=== PATIENT | female | born 1955 | race Caucasian/White ===

== ENCOUNTER 2016-12-19 11:19 | Outpatient (CLI) | payer OTHER ==
--- NOTE | 2016-12-20 13:42 | Mammography Report ---
DIGITAL SCREENING MAMMOGRAM: 12/19/2016 CLINICAL INDICATION: A 61-year-old, for screening. COMPARISON: 12/2015, 12/2014, 12/2013, 11/2012, 11/2011, 10/2010, 11/2009. TECHNIQUE: Routine CC and MLO projections were obtained of the breasts. Bilateral laterally exaggera narendra craniocaudal views. FINDINGS: The breasts again demonstrate heterogeneously dense fibroglandular parenchyma bilaterally. Coarse and punctate, typically benign calcifications are present. No suspicious masses, clustered mi crocalcifications, or regions of architectural distortion are identified. IMPRESSION: BENIGN FINDINGS. RECOMMENDATION: ROUTINE ANNUAL SCREENING UNLESS OTHERWISE CLINICALLY INDICATED. BIRADS CATEGORY 2-BENIGN FINDINGS. STANDARD QUALIFYING STATEMENTS 1. This examination was reviewed with the aid of Computer-Aided Detection (CAD). 2. A negative or benign imaging report should not delay biopsy if clinically suspicious findings are present. Consider surgical consultation if warranted. More than 5% of cancers are not identified by i maging. 3. Dense breasts may obscure an underlying neoplasm. JOB #: [id number] EXT JOB #:[id number]
== END 2016-12-19 11:20 | disposition home or self-care (01) ==
LOC: DI 11:19
PROVIDERS: ATTEND Physician Assistant
DX: Z12.31 Encounter for screening mammogram for malignant neoplasm of breast (principal)
CPT/HCPCS: 77067

== ENCOUNTER 2017-12-26 07:48 | Outpatient (CLI) | payer OTHER ==
--- NOTE | 2017-12-29 10:42 | Mammography Report ---
Reason: BILAT SCREENING W BENNY Procedure Date: 12/26/2017 Accession Number: [id number] / [id number] Procedure: [facility] - Screening Mammo w/Benny CPT Code: FULL RESULT: EXAM: Screening Mammo w/Benny DATE: 12/26/2017 8:21 AM CLINICAL HISTORY: 62-year-old female presents for screening mammography. TECHNIQUE: Bilateral CC, laterally exaggerated CC, MLO views were obtained. COMPARISON: 12/19/2016, 12/12/2015, 12/08/2014, 01/04/2014. FINDINGS: The breasts demonstrate heterogeneously dense fibroglandular parenchyma bilaterally. In the left breast, identified on Shane symphysis images initially on the MLO projection is a cluster of microcalcifications with focal asymmetry 3.9 cm from the nipple in the lateral right breast, also identified on the cc view. This requires additional imaging. IMPRESSION: Incomplete examination RECOMMENDATION: Additional evaluation as above. BIRADS CATEGORY 0: Incomplete examination STANDARD QUALIFYING STATEMENTS: 1. This examination was not reviewed with the aid of Computer-Aided Detection (CAD). 2. A negative or benign imaging report should not delay biopsy if clinically suspicious findings are present. Consider surgical consultation if warrented. More than 5% of cancers are not identified by imaging. 3. Dense breasts may obscure an underlying neoplasm. 4. This examination was reviewed with the aid of 3D imaging (tomography).
== END 2017-12-26 07:49 | disposition home or self-care (01) ==
LOC: DI 07:48
PROVIDERS: ATTEND Physician Assistant
DX: Z12.31 Encounter for screening mammogram for malignant neoplasm of breast (principal)
CPT/HCPCS: 77063; 77067

== ENCOUNTER 2018-01-14 14:16 | Outpatient (CLI) | payer OTHER ==
--- NOTE | 2018-01-14 16:02 | Mammography Report ---
Reason: ABN MAMMO - BILAT SPEC VIEWS Procedure Date: 01/14/2018 Accession Number: [id number] / [id number] Procedure: [facility] - Diag Special Views Dig Bilat CPT Code: FULL RESULT: EXAM: Diag Special Views Dig Bilat DATE: 01/14/2018 3:20 PM CLINICAL HISTORY: 62-year-old female recalled from screening mammogram for a cluster of microcalcifications in a region of focal asymmetry. TECHNIQUE: Left spot magnified CC and LM views as well as LM using 2-D and 3-D technique were obtained. COMPARISON: 12/26/2017. FINDINGS: The breasts demonstrate heterogeneously dense fibroglandular parenchyma bilaterally. The focal asymmetry resolves with spot magnification. The cluster of microcalcifications persists with garland symphysis. Comparison to previous years is not possible as the finding is obscured on 2-D views. Stereotactic 3-D guided biopsy is recommended. IMPRESSION: Suspicious abnormality. RECOMMENDATION: Stereotactic biopsy of the left breast microcalcifications seen 3.9 cm deep to the nipple on image 12 in the medial left breast of the LM tomogram. BIRADS CATEGORY 4 STANDARD QUALIFYING STATEMENTS: 1. This examination was not reviewed with the aid of Computer-Aided Detection (CAD). 2. A negative or benign imaging report should not delay biopsy if clinically suspicious findings are present. Consider surgical consultation if warrented. More than 5% of cancers are not identified by imaging. 3. Dense breasts may obscure an underlying neoplasm. 4. This examination was reviewed with the aid of 3D imaging (tomography).
== END 2018-01-14 14:17 | disposition home or self-care (01) ==
LOC: DI 14:16
PROVIDERS: ATTEND Physician Assistant
DX: R92.2 Inconclusive mammogram (principal)
CPT/HCPCS: 77066

== ENCOUNTER 2018-02-05 11:17 | Outpatient (CLI) | payer OTHER ==
--- NOTE | 2018-02-05 16:06 | Mammography Report ---
Reason: ABN MAMMO-LT BREAST CALCS Procedure Date: 02/05/2018 Accession Number: [id number] / [id number] Procedure: [facility] - Stereotactic Core BX LT CPT Code: 68053 FULL RESULT: EXAM: Stereotactic Core BX LT DATE: 02/05/2018 1:04 PM CLINICAL HISTORY: ABN MAMMO-LT BREAST CALCS COMPARISON: None. CLINICAL DATA: Target cluster of microcalcifications in the 10 o'clock axis of the left breast. Informed consent was obtained. The patient was positioned in the mammography machine with biopsy attachment. A targeting tomogram was obtained and the lesion was selected. The breast was approached from the medial aspect. Using standard aseptic technique, 1% buffered lidocaine was injected into the breasts for local anesthesia. A small matilda was made in the skin with a #11 blade. A 9-gauge vacuum-assisted device was advanced into the breasts towards the target and stereoscopic views were made to confirm tomographic targeting and 9 specimens were obtained. Specimen radiography was performed which demonstrated the presence of calcifications in the sample. The biopsy device was subsequently removed from the breast. Hemostasis was achieved. Follow-up 3-D mammography was then performed to verify biopsy targeting. The mammography showed appropriate targeting based on biopsy cavity. Retarding clip could not be placed for technical reasons. The wound was dressed and ice applied. The patient was observed for approximately 15 minutes, then discharged from the diagnostic imaging Department in stable condition following instructions on wound care and obtaining biopsy results. The patient will receive her biopsy results from the referring physician. The tissue was sent for histologic analysis. IMPRESSION: Tomographic and stereotactic left breast biopsy. RADIA
== END 2018-02-05 11:18 | disposition home or self-care (01) ==
LOC: DI 11:17
PROVIDERS: ATTEND Physician Assistant
DX: R92.8 Other abnormal and inconclusive findings on diagnostic imaging of breast (principal)
CPT/HCPCS: 19081

== ENCOUNTER 2019-01-05 14:53 | Outpatient (CLI) | payer OTHER ==
--- NOTE | 2019-01-06 09:01 | Mammography Report ---
Reason: SCREENING MAMMO Procedure Date: 01/05/2019 Accession Number: [id number] / [id number] Procedure: [facility] - Screening Mammo w/Flaquito CPT Code: FULL RESULT: EXAM: Screening Mammo w/Flaquito DATE: 01/05/2019 3:33 PM CLINICAL HISTORY: Screening. TECHNIQUE: (B) - Bilateral CC and MLO views were obtained. COMPARISON: Left breast stereotactic biopsy 02/05/2018, 01/14/2018, 12/26/2017, 12/19/2016 PARENCHYMAL PATTERN: (VD) - The breasts demonstrate extremely dense parenchyma bilaterally, limiting the sensitivity of mammography. FINDINGS: The previously described central left breast microcalcifications are no longer present. No clip is present. There are no suspicious masses, calcifications, or areas of distortion. IMPRESSION: Negative examination. BI-RADS category 1. RECOMMENDATION: (ANNUAL) - Recommend routine annual screening mammography. BI-RADS CATEGORY: (1) - Negative. STANDARD QUALIFYING STATEMENTS: 1. This examination was not reviewed with the aid of Computer-Aided Detection (CAD). 2. A negative or benign imaging report should not preclude biopsy if clinically suspicious findings are present. 3. Dense breasts may obscure an underlying neoplasm. 4. This examination was reviewed with the aid of 3D breast imaging (tomosynthesis).
== END 2019-01-05 14:54 | disposition home or self-care (01) ==
LOC: DI 14:53
DX: Z12.31 Encounter for screening mammogram for malignant neoplasm of breast (principal)
CPT/HCPCS: 77063; 77067